=== PATIENT | female | born 1950 | race Caucasian/White ===

== ENCOUNTER 2018-08-23 09:25 | Outpatient (CLI) | payer MEDICARE, MEDICAID ==
--- NOTE | 2018-08-23 10:01 | BD ---
BONE DENSITOMETRY USING DEXA: Date: 08/23/18 HISTORY: Postmenopausal screening for osteoporosis. Asymptomatic menopausal state. FINDINGS: Lumbar Spine: BMD (g/cm2) L1 0.826 T-Score: -1.4 Z-Score: 0.4 L2 0.781 T-Score: -2.2 Z-Score: -0.3 L3 0.892 T-Score: -1.7 Z-Score: 0.3 L4 0.934 T-Score: -1.2 Z-Score: 1.0 L1-L4 0.865 T-Score: -1.7 Z-Score: 0.3 Femoral Neck: 0.585 T-Score: -2.4 Z-Score: -0.7 Total Femur: 0.790 T-Score: -1.2 Z-Score: 0.2 The 10 year fracture risk for a major osteoporotic fracture is 20% and for a hip fracture is 4.4%. IMPRESSION: Osteopenia. POS: GENNY
== END 2018-08-23 09:26 | disposition home or self-care (01) ==
LOC: BICMAMMO 09:25
PROVIDERS: ATTEND Family Medicine
DX: Z53.9 Procedure and treatment not carried out, unspecified reason (principal)
CPT/HCPCS: 77080

== ENCOUNTER 2018-10-17 07:44 | Outpatient (CLI) | payer MEDICARE, MEDICAID ==
--- NOTE | 2018-10-17 08:59 | MMO ---
Bilateral MAMMO Bilat Screen [facility]. CLINICAL HISTORY: Patient is 68 years old and is seen for screening. The patient has no family history of breast cancer. The patient has no personal history of cancer. The patient has a history of bilateral Implants - SALINE. VIEWS: The views performed were: bilateral craniocaudal with tomosynthesis; bilateral mediolateral oblique with tomosynthesis; and bilateral Implant displaced. FILMS COMPARED: The present examination has been compared to a prior imaging study performed at [facility] on 04/13/2016. MAMMOGRAM FINDINGS: The breasts are heterogeneously dense, which could obscure a lesion on mammography. There is an equal density, oval mass measuring 15 millimeters with obscured margins seen in the MLO view only seen in the upper region of the left breast. In the right breast, there are no suspicious masses, calcifications or areas of architectural distortion. IMPRESSION: MASS IN THE LEFT BREAST REQUIRES ADDITIONAL EVALUATION. RECOMMEND DIAGNOSTIC MAMMOGRAM. ULTRASOUND MAY ALSO PROVE USEFUL AT RECALL. THE RESULTS OF THIS EXAM WERE SENT TO THE PATIENT. ACR BI-RADS Category 0 - Incomplete: Need additional imaging evaluation. [facility] will notify the patient of the need for additional imaging services. MAMMOGRAPHY NOTE: 1. A negative mammogram report should not delay a biopsy if a dominant of clinically suspicious mass is present. 2. Approximately 10% to 15% of breast cancers are not detected by mammography. 3. Adenosis and dense breasts may obscure an underlying neoplasm.
== END 2018-10-17 07:45 | disposition home or self-care (01) ==
LOC: BICMAMMO 07:44
PROVIDERS: ATTEND Family Medicine
DX: Z12.31 Encounter for screening mammogram for malignant neoplasm of breast (principal); N63.20 Unspecified lump in the left breast, unspecified quadrant; Z98.82 Breast implant status
CPT/HCPCS: 77063; 77067

== ENCOUNTER 2018-10-24 09:37 | Outpatient (CLI) | payer MEDICARE, MEDICAID ==
--- NOTE | 2018-10-24 10:26 | MMO ---
Right Breast MAMMO Unilat Diag [facility]. CLINICAL HISTORY: Patient is 68 years old and is seen for diagnostic exam. The patient has no family history of breast cancer. The patient has no personal history of cancer. The patient has a history of bilateral Implants - SALINE. VIEWS: The views performed were: right mediolateral oblique with tomosynthesis; right mediolateral; right mediolateral with tomosynthesis; right exaggerated craniocaudal with tomosynthesis; and right Implant displaced with tomosynthesis. FILMS COMPARED: The present examination has been compared to prior imaging studies performed at [facility] on 11/24/2006 and 10/17/2018, and at [facility] on 04/13/2016. MAMMOGRAM FINDINGS: The breast is heterogeneously dense, which could obscure a lesion on mammography. There is a stable focal asymmetry seen in the upper-outer region of the right breast. Tomosynthesis images show the abnormality to represent superimpostion of normal breast parenchyma. There are no suspicious masses, suspicious calcifications, or new areas of architectural distortion. IMPRESSION: THERE IS NO MAMMOGRAPHIC EVIDENCE OF MALIGNANCY. A ROUTINE FOLLOW-UP MAMMOGRAM IN 1 YEAR IS RECOMMENDED. THE RESULTS OF THIS EXAM WERE SENT TO THE PATIENT. ACR BI-RADS Category 2 - Benign finding MAMMOGRAPHY NOTE: 1. A negative mammogram report should not delay a biopsy if a dominant of clinically suspicious mass is present. 2. Approximately 10% to 15% of breast cancers are not detected by mammography. 3. Adenosis and dense breasts may obscure an underlying neoplasm.
== END 2018-10-24 09:38 | disposition home or self-care (01) ==
LOC: BICMAMMO 09:37
PROVIDERS: ATTEND Family Medicine
DX: N63.0 Unspecified lump in unspecified breast (principal); Z98.82 Breast implant status
CPT/HCPCS: 77065; G0279

== ENCOUNTER 2021-04-30 07:53 | Outpatient (CLI) | payer MEDICARE, MEDICAID | END 2021-04-30 07:54 | disposition home or self-care (01) | LOC: BICMAMMO 07:53 | PROVIDERS: ATTEND Family Medicine | DX: Z12.31 Encounter for screening mammogram for malignant neoplasm of breast (principal); Z98.82 Breast implant status | CPT/HCPCS: 77063; 77067 ==

== ENCOUNTER 2023-06-14 08:37 | Outpatient (CLI) | payer OTHER, MEDICAID | END 2023-06-14 08:38 | disposition home or self-care (01) | LOC: CT 08:37 | PROVIDERS: ATTEND Family Medicine | DX: R10.9 Unspecified abdominal pain (principal); G89.29 Other chronic pain; J98.4 Other disorders of lung; M47.819 Spondylosis without myelopathy or radiculopathy, site unspecified; K57.30 Diverticulosis of large intestine without perforation or abscess without bleeding | CPT/HCPCS: 74178 ==